=== PATIENT | male | born 1940 | race Caucasian/White ===

== ENCOUNTER 2020-12-07 08:02 | Outpatient (CLI) | payer MEDICARE, OTHER ==
[2020-12-07] VITALS (14 sets, daily range): BP systolic 60–141; BP diastolic 38–86
== END 2020-12-07 23:59 | disposition home or self-care (01) ==
LOC: CARD DIAG 08:02
PROVIDERS: ATTEND Family Medicine
DX: I95.9 Hypotension, unspecified (principal); R55 Syncope and collapse
CPT/HCPCS: 93660

== ENCOUNTER 2022-09-04 14:29 | Emergency (ER) | payer MEDICARE, OTHER ==
[~2022-09-04] VITALS: Ht 180.3 cm; Wt 97.7 kg
[2022-09-04 14:52] LABS: BASOPHILS % (AUTO) 0.8 % (0-1); EOSINOPHILS # (AUTO) 0.2 X10'3 (0-0.9); EOSINOPHILS % (AUTO) 2.9 % (0-6); HEMATOCRIT 40.5 % (42.0-52.0); HEMOGLOBIN 13.2 g/dl (14.0-17.9); LYMPHOCYTES # (AUTO) 1.4 X10'3 (1.1-4.8); LYMPHOCYTES % (AUTO) 24.4 % (21-51); MEAN CORPUSCULAR HGB CONC 32.7 g/dL (33.0-36.5); MEAN CORPUSCULAR VOLUME 88.7 FL (78-98); MEAN PLATELET VOLUME 7.1 FL (7.4-10.4); MONOCYTES # (AUTO) 0.6 X10'3 (0-0.9); MONOCYTES % (AUTO) 11.3 % (2-12); NEUTROPHILS # (AUTO) 3.5 X10'3 (1.8-7.7); NEUTROPHILS % (AUTO) 60.6 % (42-75); PLATELET COUNT 197 X10'3 (140-440); RED BLOOD COUNT 4.57 X10'6 (4.70-6.10); WHITE BLOOD COUNT 5.7 X10'3 (4.5-11.0)
[2022-09-04 14:58] LABS: ALANINE AMINOTRANSFERASE 12 U/L (12-78); ALBUMIN 3.2 G/DL (3.4-5.0); ALKALINE PHOSPHATASE 118 IU/L (46-116); ANION GAP 8 (8-16); ASPARTATE AMINO TRANSFERASE 13 U/L (10-37); BILIRUBIN,TOTAL 0.7 MG/DL (0.1-1.0); BLOOD UREA NITROGEN 8 MG/DL (7-18); BUN/CREATININE RATIO 7.2 (10.0-20.0); CALCIUM 8.9 MG/DL (8.5-10.1); CHLORIDE 101 MMOL/L (99-107); CREATININE 1.11 MG/DL (0.60-1.10); GLUCOSE 102 MG/DL (70-104); POTASSIUM 4.3 MMOL/L (3.5-5.1); SODIUM 136 MMOL/L (135-145); TOTAL CARBON DIOXIDE 27.2 MMOL/L (24-32); TOTAL PROTEIN 6.4 G/DL (6.4-8.2); eGFR 63 ML/MIN
[2022-09-04] MEDS ORDERED: normal saline 1000ML IV soln IVB ONE (16:25)
[2022-09-04 19:43] VITALS: BP 158/104
== END 2022-09-04 19:44 | disposition home or self-care (01) ==
LOC: ER 14:29
DX: S80.212A Abrasion, left knee, initial encounter (principal); I95.1 Orthostatic hypotension; W19.XXXA Unspecified fall, initial encounter; Y93.89 Activity, other specified; Y92.89 Other specified places as the place of occurrence of the external cause; Y99.8 Other external cause status
CPT/HCPCS: 36415; 71045; 80053; 83880; 84484; 85025; 93005; 99285; J7030